=== PATIENT | male | born 1985 | race Caucasian/White ===

== ENCOUNTER 2018-01-11 22:59 | Emergency (ER) | payer OTHER ==
[~2018-01-11] VITALS: Ht 167.6 cm; Wt 86.4 kg
[2018-01-12 01:26] VITALS: BP 140/76
== END 2018-01-12 01:28 | disposition home or self-care (01) ==
LOC: EMS 23:01
DX: J34.0 Abscess, furuncle and carbuncle of nose (principal); F12.90 Cannabis use, unspecified, uncomplicated; F14.90 Cocaine use, unspecified, uncomplicated; F17.210 Nicotine dependence, cigarettes, uncomplicated
CPT/HCPCS: 99283

== ENCOUNTER 2018-04-14 19:46 | Emergency (ER) | payer OTHER | END 2018-04-14 21:00 | disposition left against medical advice (07) | LOC: EMS 19:47 | DX: Z53.21 Procedure and treatment not carried out due to patient leaving prior to being seen by health care provider (principal) ==